=== PATIENT | male | born 1950 | race Caucasian/White ===

== ENCOUNTER 2018-07-15 00:16 | Emergency (ER) | payer MEDICAID, OTHER ==
[~2018-07-15] VITALS: Ht 170.2 cm; Wt 81.6 kg
[~2018-07-15 00:16] MED LIST: MET10 PO; ZOLP5TAB2 PO
[2018-07-15 00:27] VITALS: BP_SYST 155
[2018-07-15 00:40] VITALS: BP_SYST 150
== END 2018-07-15 00:40 | disposition home or self-care (01) ==
LOC: SED 00:16
DX: F41.9 Anxiety disorder, unspecified (principal); G89.29 Other chronic pain; M19.90 Unspecified osteoarthritis, unspecified site
CPT/HCPCS: 99284

== ENCOUNTER 2018-07-15 06:20 | Emergency (ER) | payer OTHER ==
[~2018-07-15] VITALS: Ht 170.2 cm; Wt 81.6 kg
[2018-07-15 06:25] VITALS: BP_SYST 149
[2018-07-15] MEDS ORDERED: NACL 0.9% 1,000 ML IV ONE (06:31)
[2018-07-15] MEDS ORDERED: LORazepam 2 MG/ML VIAL (FOR ER USE) IVP ONE (06:45)
[2018-07-15] MEDS ORDERED: MORPHINE 2 MG/ML INJ. SYRINGE IVP ONE (06:45)
[2018-07-15 07:18] LABS: BASOPHILS # (AUTO) 0.1 K/uL (0.0-0.2); BASOPHILS % (AUTO) 0.8 % (0.0-2.0); EOSINOPHILS % (AUTO) 0.5 % (0.0-4.0); HEMATOCRIT 44.5 % (36-54); HEMOGLOBIN 14.8 g/dL (14.0-18.0); LYMPHOCYTES # (AUTO) 1.5 K/uL (1.0-5.5); LYMPHOCYTES % (AUTO) 20.3 % (20.5-51.5); MEAN CORPUSCULAR HEMOGLOBIN 28 pg (27-31); MEAN CORPUSCULAR HGB CONC 33 % (32-36); MEAN CORPUSCULAR VOLUME 85 fL (79.0-98.0); MONOCYTES # (AUTO) 0.6 K/uL (0.0-1.0); MONOCYTES % (AUTO) 8.6 % (1.7-9.3); NEUTROPHILS # (AUTO) 5.1 K/uL (1.8-7.7); NEUTROPHILS % (AUTO) 69.8 % (40.0-70.0); PLATELET COUNT (AUTO) 321 K/uL (130-430); RED BLOOD CELL COUNT(AUTO) 5.23 MIL/uL (4.2-6.2); RED CELL DISTRIBUTION WIDTH 13.9 % (9.0-15.0); WHITE BLOOD COUNT (AUTO) 7.3 K/uL (4.8-10.8)
[2018-07-15 07:29] LABS: CREATININE 0.85 mg/dL (0.55-1.30); POTASSIUM 3.7 mmol/L (3.5-5.1)
[2018-07-15 07:33] LABS: ALBUMIN 3.5 g/dL (3.4-4.8); TOTAL BILIRUBIN 0.3 mg/dL (0.0-1.0)
== END 2018-07-15 09:26 | disposition home or self-care (01) ==
LOC: SED 06:20
DX: R68.2 Dry mouth, unspecified (principal); F11.23 Opioid dependence with withdrawal
CPT/HCPCS: 36415; 80053; 85025; 96374; 96375; 99284; J2060; J2270; J7030

== ENCOUNTER 2019-01-25 17:06 | Emergency (ER) | payer OTHER, MEDICAID ==
[~2019-01-25] VITALS: Ht 165.1 cm; Wt 83.5 kg
--- NOTE | 2019-01-25 17:11 | NUR ---
Patient to ER bed 05 to gown for evaluation. Side rails up.
[2019-01-25 17:18] VITALS: BP_SYST 160
--- NOTE | 2019-01-25 17:20 | NUR ---
Patient arrived via POV, AAOx4, and ambulatory with steady gait. Patient has history of anxiety, who presents to the ED with complaints of increased agitation and difficulty sleeping for 1 day. Patient reports the symptoms feel similar to prior anxiety attacks. He reports he has taken [employer] for the symptoms with no relief. No known modifying factors. No pain reported. Otherwise no chest pain, shortness of breath, nausea, vomiting, diarrhea, recent trauma, dizziness, or headache.
--- NOTE | 2019-01-25 17:35 | NUR ---
ER at bedside examining patient.
[2019-01-25] MEDS ORDERED: LORazepam 2 MG/ML VIAL (FOR ER USE) IM ONE (18:00)
[2019-01-25 18:20] VITALS: BP_SYST 169
--- NOTE | 2019-01-25 18:20 | NUR ---
Patient given written and verbal discharge instructions and verbalizes understanding. ER MD discussed with patient the results and treatment provided. Patient in stable condition. ID arm band removed. Rx of Xanax given. Patient educated on pain management and to follow up with PMD. Pain Scale 0. Opportunity for questions provided and answered. Medication side effect fact sheet provided.
== END 2019-01-25 18:20 | disposition home or self-care (01) ==
LOC: SED 17:06
DX: F41.9 Anxiety disorder, unspecified (principal); F43.10 Post-traumatic stress disorder, unspecified; M19.90 Unspecified osteoarthritis, unspecified site; Z79.899 Other long term (current) drug therapy
CPT/HCPCS: 96372; 99284; J2060; 99283

== ENCOUNTER 2019-01-26 01:29 | Emergency (ER) | payer OTHER ==
[~2019-01-26] VITALS: Ht 165.1 cm; Wt 83.5 kg
[2019-01-26 01:35] VITALS: BP_SYST 143
[2019-01-26] MEDS ORDERED: LORazepam 2 MG/ML VIAL (FOR ER USE) IM ONE (01:45)
[2019-01-26] MEDS ORDERED: DIPHENHYDRAMINE HCL 50 MG CAPSULE PO ONE (01:45)
[2019-01-26] MEDS ORDERED: HALOPERIDOL LACTATE 5 MG/ML VIAL IM ONE (03:00)
[2019-01-26 07:01] VITALS: BP_SYST 138
== END 2019-01-26 07:01 | disposition home or self-care (01) ==
LOC: SED 01:29
DX: F41.0 Panic disorder [episodic paroxysmal anxiety] (principal); R03.0 Elevated blood-pressure reading, without diagnosis of hypertension
CPT/HCPCS: 96372; 99284; J1630; J2060; Q0163